=== PATIENT | male | born 1960 | race Caucasian/White ===

== ENCOUNTER 2022-07-11 13:01 | Emergency (ER) | payer BC ==
[~2022-07-11] VITALS: Ht 180.3 cm; Wt 75.0 kg
[2022-07-11 14:04] VITALS: BP 158/97
[2022-07-11 14:11] LABS: BASOPHILS # (AUTO) 0.1 X10'3 (0-0.2); BASOPHILS % (AUTO) 0.6 % (0-1); EOSINOPHILS % (AUTO) 0.4 % (0-6); HEMATOCRIT 44.9 % (42.0-52.0); HEMOGLOBIN 14.8 g/dl (14.0-17.9); LYMPHOCYTES # (AUTO) 2.2 X10'3 (1.1-4.8); LYMPHOCYTES % (AUTO) 22.1 % (21-51); MEAN CORPUSCULAR HEMOGLOBIN 28.6 PG (27.0-31.0); MEAN CORPUSCULAR HGB CONC 33.1 g/dL (33.0-36.5); MEAN CORPUSCULAR VOLUME 86.5 FL (78-98); MEAN PLATELET VOLUME 8.5 FL (7.4-10.4); MONOCYTES # (AUTO) 0.8 X10'3 (0-0.9); MONOCYTES % (AUTO) 8.2 % (2-12); NEUTROPHILS % (AUTO) 68.7 % (42-75); PLATELET COUNT 321 X10'3 (140-440); RED BLOOD COUNT 5.18 X10'6 (4.70-6.10); RED CELL DISTRIBUTION WIDTH 13.8 % (11.5-14.5); WHITE BLOOD COUNT 10.2 X10'3 (4.5-11.0)
[2022-07-11 14:32] LABS: ALANINE AMINOTRANSFERASE 47 U/L (12-78); ALBUMIN 4.2 G/DL (3.4-5.0); ALBUMIN/GLOBULIN RATIO 1.1 (1.1-1.5); ALKALINE PHOSPHATASE 48 IU/L (46-116); ANION GAP 12 (8-16); ASPARTATE AMINO TRANSFERASE 35 U/L (10-37); BILIRUBIN,TOTAL 0.7 MG/DL (0.1-1.0); BLOOD UREA NITROGEN 11 MG/DL (7-18); BUN/CREATININE RATIO 14.9 (5.4-32.0); CALCIUM 9.6 MG/DL (8.5-10.1); CHLORIDE 101 MMOL/L (99-107); CREATININE 0.74 MG/DL (0.60-1.10); GLUCOSE 137 MG/DL (70-104); LIPASE 143 U/L (73-393); POTASSIUM 3.7 MMOL/L (3.5-5.1); SODIUM 139 MMOL/L (135-145); TOTAL PROTEIN 7.9 G/DL (6.4-8.2); eGFR > 90 ML/MIN
[2022-07-11 15:10] LABS: CLARITY,URINE CLEAR (Clear); COLOR,URINE YELLOW (Yellow); GLUCOSE, URINE NEGATIVE (Neg); KETONES,URINE 40 mg/dl (Neg); LEUKOCYTE ESTERASE ,URINE NEGATIVE (Neg); NITRITES, URINE NEGATIVE (Neg); OCCULT BLOOD,URINE NEGATIVE (Neg); PH,URINE 6.5 (4.8-8.0); PROTEIN,URINE NEGATIVE (Neg); UA COLLECTION TYPE NON-SPECIFIED; UROBILINOGEN,URINE 0.2 E.U/dL (0.2-1.0)
[2022-07-11] MEDS ORDERED: haloperidol lactate 5mg/ml inj IM ONE (15:20)
[2022-07-11] MEDS ORDERED: diphenhydrAMINE 50 mg/ml inj IM ONE (15:20)
== END 2022-07-11 16:21 | disposition home or self-care (01) ==
LOC: ER 13:01
DX: G47.00 Insomnia, unspecified (principal); Z88.0 Allergy status to penicillin; R14.0 Abdominal distension (gaseous); T43.216A Underdosing of selective serotonin and norepinephrine reuptake inhibitors, initial encounter; Z91.138 Patient's unintentional underdosing of medication regimen for other reason; Y92.89 Other specified places as the place of occurrence of the external cause
CPT/HCPCS: 36415; 80053; 81003; 83690; 85025; 96372; 99284; J1200; J1630

== ENCOUNTER 2024-06-01 10:17 | Outpatient (CLI) | payer MEDICARE, OTHER ==
[~2024-06-01] VITALS: Ht 180.3 cm; Wt 77.1 kg
[2024-06-01] MEDS: albuterol 2.5 MG/3 ML nebule NEB ONE (10:56)
[2024-06-01 10:57] VITALS: PULSE 88; RESP 16; O2SAT 96
[2024-06-01 11:09] VITALS: PULSE 79; RESP 16
== END 2024-06-01 23:59 | disposition home or self-care (01) ==
LOC: RT 10:17
PROVIDERS: ATTEND Student in an Organized Health Care Education/Training Program
DX: J45.909 Unspecified asthma, uncomplicated (principal)
CPT/HCPCS: 94060; 94760